=== PATIENT | female | born 1985 | race Caucasian/White ===

== ENCOUNTER 2017-03-21 17:04 | Emergency (ER) ==
[2017-03-21 17:09] VITALS: BP 123/79; TEMP 98.8; BMI 32.9
[2017-03-21] MEDS ORDERED: ZOFRAN 4 MG/2 ML IM STA (17:42)
[2017-03-21] MEDS ORDERED: MORPHINE 2 MG/ML SYRINGE IM STA (17:43)
[2017-03-21 17:57] LABS: BASOPHILS # (AUTO) 0.1 K/uL (0-0.2); BASOPHILS % (AUTO) 0.7 % (0.0-3.0); EOSINOPHILS # (AUTO) 0.2 K/ul (0.0-0.7); EOSINOPHILS % (AUTO) 1.6 % (0.0-7.0); HEMATOCRIT 38.4 % (37.0-47.0); HEMOGLOBIN 13.7 g/dl (12.0-16.0); IMMATURE GRANULOCYTE % (AUTO) 0.3 % (0.0-5.0); LYMPHOCYTES % (AUTO) 29.9 (10.0-50.0); MEAN CORPUSCULAR HEMOGLOBIN 31.9 pg (27.0-31.0); MEAN CORPUSCULAR HGB CONC 35.7 (31.8-35.4); MEAN CORPUSCULAR VOLUME 89.3 fl (81.0-99.0); MONOCYTES # (AUTO) 0.6 K/uL (0.4-2.0); MONOCYTES % (AUTO) 6.3 (0-10); NEUTROPHILS # (AUTO) 6.2 K/ul (2.0-6.9); NEUTROPHILS % (AUTO) 61.2; PLATELET COUNT 254 10^3/uL (140-440); WHITE BLOOD COUNT 10.14 K/ul (4.6-10.2)
[2017-03-21 18:03] LABS: BILIRUBIN,URINE Negative (NEGATIVE); KETONES,URINE Negative (NEGATIVE); LEUKOCYTE ESTERASE ,URINE Negative (NEGATIVE); NITRITE,URINE Negative (NEGATIVE); PH,URINE 5.5 (5-9); PROTEIN,URINE Negative (NEGATIVE); URINE, BLOOD Trace-intact (NEGATIVE)
[2017-03-21 18:06] LABS: ADD URINE MICROSCOPIC YES
[2017-03-21 18:08] LABS: BACTERIA,URINE 1+ (NOT PRESENT)
[2017-03-21 18:08] LABS: SERUM PREGNANCY INTERNAL QC INTERNAL QC VALID
[2017-03-21 18:16] LABS: ALBUMIN 3.6 g/dL (3.4-5.0); ALBUMIN/GLOBULIN RATIO 1.24; BILIRUBIN,TOTAL 0.35 mg/dL (0.00-1.20); BUN/CREATININE RATIO 14.1; CALCIUM 8.9 mg/dL (8.2-10.2); CREATININE 0.78 mg/dL (0.60-1.30); TOTAL PROTEIN 6.5 g/dL (6.4-8.2)
--- NOTE | 2017-03-21 18:19 | ED.PDOC ---
General ED Provider: Dr. ISMAEL WAGNER Chief Complaint: Kidney Stone Stated Complaint: dysuria/ flank pain left Time Seen by Physician: 17:00 Mode of Arrival: Walk-In Information Source: Patient Exam Limitations: No limitations Nursing and Triage Documentation Reviewed and Agree: Yes (history of renal stone ) Musculoskeletal Complaint Exam - Back Pain Complaint/Exam Mechanism of Injury: Reports: No known trauma (left flank) Onset/Duration: presentx3 hrs Symptoms Are: Still present Timing: Constant Episodes Lasting: Hours Initial Severity: Moderate Current Severity: Moderate Location: Reports: Discrete Character: Reports: Aching Aggravating: Reports: Movements Associated Signs and Symptoms: Reports: Flank pain (left). Denies: Swelling, Redness, Bruising, Fever, Weakness, Numbness, Tingling, Abdominal pain, Bladder incontinence, Bowel incontinence, Weight loss, Pain with weight bearing Related History: Reports: Similar episode (renal stone ) TAD Risk Factors: Reports: None AAA Risk Factors: Reports: Smoking (stopped 1 month ago) Cauda Equina Risk Factors: Reports: None Epidural Abcess Risk Factors: Reports: None Related Surgical History: Reports: None Paraspinal Muscle Tenderness: No Paraspinal Muscle Spasm: No Scoliosis: No Lordosis: No Kyphosis: No SLR Test: Right Negative, Left Negative Hip Motion Testing Pain: Right Negative, Left Negative Focal Weakness: Present: None Focal Sensory Loss: Present: None Gait: Present: Normal Differential Diagnoses: Renal Colic, Strain, Sprain Review of Systems - Review Of Systems Constitutional: Reports: No symptoms Eyes: Reports: No symptoms Ears, Nose, Mouth, Throat: Reports: No symptoms Respiratory: Reports: No symptoms Cardiac: Reports: No symptoms GI: Reports: No symptoms : Reports: Dysuria Musculoskeletal: Reports: Back pain Skin: Reports: No symptoms Neurological: Reports: No symptoms Endocrine: Reports: No symptoms Hematologic/Lymphatic: Reports: No symptoms All Other Systems: Reviewed and Negative Past Medical History - Past Medical History Previously Healthy: Yes Endocrine: Reports: Unknown Cardiovascular: Reports: Unknown Respiratory: Reports: Unknown Hematological: Reports: Unknown Gastrointestinal: Reports: Unknown Genitourinary: Reports: Unknown Neuro/Psych: Reports: Unknown Musculoskeletal: Reports: Unknown Cancer: Reports: Unknown Last Menstrual Period: last february - Surgical History General Surgical History: Reports: Unknown - Family History Family History: Reports: Unknown - Social History Smoking Status: Current some day smoker Hx Substance Use: No Alcohol Screening: None Physical Exam - Physical Exam Appearance: Well-appearing, No pain distress, Well-nourished Eyes: BRANDI, EOMI, Conjunctiva clear ENT: Ears normal, Nose normal, Oropharynx normal Respiratory: Airway patent, Breath sounds clear, Breath sounds equal, Respirations nonlabored Cardiovascular: RRR, Pulses normal, No rub, No murmur GI/: Soft, Nontender, No masses, Bowel sounds normal, No Organomegaly Musculoskeletal: Normal strength, ROM intact, No edema, No calf tenderness Skin: Warm, Dry, Normal color Neurological: Sensation intact, Motor intact, Reflexes intact, Cranial nerves intact, Alert, Oriented Psychiatric: Affect appropriate, Mood appropriate Critical Care Note - Critical Care Note Total Time (mins): 0 Course - Course Hematology/Chemistry: 03/21/17 17:53 03/21/17 17:53 Orders, Labs, Meds: Lab Review 03/21/17 03/21/17 03/21/17 17:43 17:53 17:53 WBC 10.14 RBC 4.30 Hgb 13.7 Hct 38.4 MCV 89.3 MCH 31.9 H MCHC 35.7 H RDW Coeff of Ruchi 12.0 Plt Count 254 Immature Gran % (Auto) 0.3 Neut % (Auto) 61.2 Lymph % (Auto) 29.9 [place] % (Auto) 6.3 Eos % (Auto) 1.6 Baso % (Auto) 0.7 Immature Gran # (Auto) 0.0 Neut # 6.2 Lymph # 3.0 [place] # 0.6 Eos # 0.2 Baso # 0.1 Sodium 137 Potassium 4.0 Chloride 106 Carbon Dioxide 24 Anion Gap 11.0 BUN 11 Creatinine 0.78 Estimated GFR (MDRD) 85.00 BUN/Creatinine Ratio 14.10 Glucose 100 Calcium 8.9 Total Bilirubin 0.35 AST 11 L ALT 10 L Alkaline Phosphatase 76 Total Protein 6.5 Albumin 3.6 Globulin 2.9 Albumin/Globulin Ratio 1.24 Serum , Qual Urine Color Yellow Urine Clarity Slightly Urine pH 5.5 Ur Specific Royal 1.025 Urine Protein Negative Urine Glucose (UA) Negative Urine Ketones Negative Urine Blood Trace-intact Urine Nitrite Negative Urine Bilirubin Negative Urine Urobilinogen 0.2 Ur Leukocyte Esterase Negative Urine Microscopic RBC 2-5 Ur Squamous Epith Cells 10-20 Urine Bacteria 1+ Urine Mucus 3+ 03/21/17 17:53 WBC RBC Hgb Hct MCV MCH MCHC RDW Coeff of Ruchi Plt Count Immature Gran % (Auto) Neut % (Auto) Lymph % (Auto) [place] % (Auto) Eos % (Auto) Baso % (Auto) Immature Gran # (Auto) Neut # Lymph # [place] # Eos # Baso # Sodium Potassium Chloride Carbon Dioxide Anion Gap BUN Creatinine Estimated GFR (MDRD) BUN/Creatinine Ratio Glucose Calcium Total Bilirubin AST ALT Alkaline Phosphatase Total Protein Albumin Globulin Albumin/Globulin Ratio Serum , Qual Negative Urine Color Urine Clarity Urine pH Ur Specific [place] Urine Protein Urine Glucose (UA) Urine Ketones Urine Blood Urine Nitrite Urine Bilirubin Urine Urobilinogen Ur Leukocyte Esterase Urine Microscopic RBC Ur Squamous Epith Cells Urine Bacteria Urine Mucus Orders Category Date Time Status CBC W/ AUTO DIFF Stat LAB 03/21/17 17:53 Completed COMPREHENSIVE METABOLIC PANEL Stat LAB 03/21/17 17:53 Completed SERUM Stat LAB 03/21/17 17:53 Completed URINALYSIS C & S IF INDICATED Stat LAB 03/21/17 17:43 Completed URINE CULTURE Routine LAB 03/21/17 17:43 Received Morphine Sulfate [Morphine 2 mg/ml Syringe] MEDS 03/21/17 17:43 Discontinued 2 mg IM ONCE STA Ondansetron HCl/Pf [Zofran 4 mg/2 ml] MEDS 03/21/17 17:42 Discontinued 4 mg IM ONCE STA CT ABDOMEN/PELVIS WO CONTRAST Stat RADS 03/21/17 17:42 Ordered Medications Discontinued Medications Generic Name Dose Route Start Last Admin Trade Name Freq PRN Reason Stop Dose Admin Morphine Sulfate 2 mg 03/21/17 17:43 03/21/17 17:55 Morphine 2 Mg/Ml Syringe IM 03/21/17 17:44 2 mg ONCE STA Administration Ondansetron HCl 4 mg 03/21/17 17:42 03/21/17 17:56 Zofran 4 Mg/2 Ml IM 03/21/17 17:43 4 mg ONCE STA Administration Vital Signs: Temp Pulse Resp BP Pulse Ox 03/21/17 17:05 98.8 F 88 16 123/79 97 Departure - Departure Time of Disposition: 19:00 Disposition: HOME SELF-CARE Discharge Problem: Back pain Qualifiers: Back pain location: low back pain Instructions: Acute Low Back Pain (ED) Condition: Good Pt referred to PMD for follow-up: Yes Additional Instructions: Please call your Family Physician as soon as possible to schedule a follow-up appointment. Allergies/Adverse Reactions: Allergies latex Adverse Reaction (Verified 03/21/17 17:10) Home Medications: Ambulatory Orders 1 [No Reported Medications] 12/29/16 Disposition Discussed With: Patient
--- NOTE | 2017-03-21 18:55 | CT ---
EXAM: CT of the abdomen pelvis without contrast History: Bilateral flank pain, history kidney stones. Comparison: CT abdomen pelvis 09/15/2014 Technique: Multiplanar CT images through the abdomen pelvis were obtained without the administration of IV contrast Findings: Lung bases are free of consolidation. No acute osseous abnormalities. No discrete gallstones identified by CT. No focal liver or splenic lesions. No peripancreatic infla mmation. Adrenal glands are unremarkable. Punctate 1 mm bilateral renal calculi. No hydronephrosis . No ureteral calculi. No perinephric stranding. No bowel obstruction. Appendix is normal. No fr ee air and no ascites. No bladder wall thickening. No perirectal inflammation. Mild colonic divert iculosis. Adnexal structures appear appropriate for patient's age. Impression: 1. No acute intra-abdominal or pelvic process. 2. Nonobstructing bilateral nephrolithiasis. 3. Mild colonic diverticulosis
== END 2017-03-21 19:16 | disposition home or self-care (01) ==
LOC: ED 17:04
DX: M54.5 Low back pain (principal); R30.0 Dysuria; Z87.442 Personal history of urinary calculi; F17.210 Nicotine dependence, cigarettes, uncomplicated
CPT/HCPCS: 36415; 80053; 81001; 84703; 85025; 87086; 96372; 99283

== ENCOUNTER 2017-06-06 15:27 | Outpatient (CLI) | END 2017-06-06 15:28 | disposition home or self-care (01) | LOC: LAB 15:27 | PROVIDERS: ATTEND Internal Medicine | DX: R05 Cough (principal); R50.9 Fever, unspecified; J02.9 Acute pharyngitis, unspecified | CPT/HCPCS: 87502; 87651 ==

== ENCOUNTER 2017-11-16 13:58 | Outpatient (CLI) | payer OTHER ==
--- NOTE | 2017-11-16 15:40 | MRI ---
EXAM: MRI of the left ankle/hind-foot without contrast COMPARISON: None available. HISTORY: Left ankle pain/injury. Tripped in a manhole. TECHNIQUE: Multiplanar noncontrast MR images of the left ankle/hind-foot were acquired using a 1.2 T esla magnet. FINDINGS: No recent radiographs of the left ankle are available for comparison and radiographic allie elation is recommended. There is abnormal signal and morphology of the deltoid ligament with marked thinning and irregularity of the ligament fibers consistent with a near complete to complete tear with most thin residual inta ct fibers. Marrow edema along the medial malleolar and medial talar attachments of the ligament with suspected flake avulsion fracture at the level of the talar attachment. Marrow edema extends through out the head and neck of the talus. The talar dome is intact. Small tibiotalar and posterior subtal ar joint effusions. Small dorsal osteophytes at the talonavicular joint. There is subcutaneous edema throughout the ankle/hind-foot extending through the midfoot and visualiz ed portions of the proximal forefoot. Minimal Achilles tendinosis peritendinitis without a tendon te ar. Plantar calcaneal and retrocalcaneal spurs. Scarring of the proximal portion of the plantar fas susan without fascial rupture. The anterior tibial, extensor hallicus longus and extensor digitorum tendons are intact. There is po sterior tibial tendinosis and tenosynovitis. 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 Flexor digitorum and flexor hallicus longus tenosynovitis extending from the level of the ankle/hind-foot through the midfoot. Peroneus longus/brevis tendinosis and ten osynovitis with partial/split tear of the peroneus brevis at/below the lateral malleolus. Sprain with scarring of the anterior and posterior tibiofibular ligaments with intact fibers identifi ed. Discontinuity of the anterior talofibular ligament related to a high-grade/complete tear. Thinn ing of the calcaneofibular and posterior talofibular ligaments related to a partial tears. Tear of t he deltoid ligament as described above. IMPRESSION: 1. Near complete to complete tear of the deltoid ligament. Marrow edema involving the medial malleo lar and medial talar attachments of the ligament with suspected flake avulsion fracture as described. Correlation with more recent radiographs is recommended. 2. High-grade tear of the anterior talofibular ligament. Sprain/partial tear of the calcaneofibular and posterior talofibular ligaments. Sprains with scarring of the anterior and posterior tibiofibul ar ligaments. 3. Degenerative changes. Small joint effusions. 4. Minimal Achilles tendinosis and peritendinitis without a tendon tear. Chronic sequela of plantar fasciitis without fascial rupture. 5. Posterior tibial tendinosis and tenosynovitis. 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 Flexor digitorum and flexor hallicus longus tenosynovitis. 6. Peroneus longus/brevis tendinosis and tenosynovitis with partial/split tear of the peroneus brevi s.
== END 2017-11-16 13:59 | disposition home or self-care (01) ==
LOC: RAD 13:58
PROVIDERS: ATTEND Emergency Medicine
DX: M25.572 Pain in left ankle and joints of left foot (principal)